=== PATIENT | male | born 1945 | race Two or more races ===

== ENCOUNTER → 2017-06-18 | Outpatient (REF) | payer MEDICARE, BC | LOC: M SMT 13:23 | PROVIDERS: ATTEND Nurse Practitioner Women's Health | DX: N40.0 Benign prostatic hyperplasia without lower urinary tract symptoms (principal); M17.11 Unilateral primary osteoarthritis, right knee; R35.0 Frequency of micturition | CPT/HCPCS: 36415; 51798; 81001; 85025; 85652; 86140; 86431; 87086; G0463 ==

== ENCOUNTER → 2017-06-18 | Outpatient (REF) | payer MEDICARE, BC ==
[2017-06-18 17:10] LABS: BASO % 0.7 % (0.0-1.0); EOS # 0.2 K/mm3 (0.0-0.50); EOS % 2.8 % (0.0-3.0); LARGE UNSTAINED CELL # 0.1 K/mm3 (0.0-0.4); LARGE UNSTAINED CELL % 2.1 % (0.0-4.0); LYMPH # 1.8 K/mm3 (1.5-4.5); LYMPH % 25.5 % (24.0-44.0); MEAN CORPUSCULAR HEMOGLOBIN 31.3 pg (27.0-33.0); MEAN CORPUSCULAR HGB CONC 34.6 g/dl (32.0-36.5); MEAN CORPUSCULAR VOLUME 90.3 fl (80.0-96.0); MONO # 0.4 K/mm3 (0.0-0.8); MONO % 5.4 % (0.0-5.0); NEUTROPHILS # 4.2 K/mm3 (1.8-7.7); NEUTROPHILS % 63.6 % (36.0-66.0); PLATELET COUNT, AUTOMATED 226 k/mm3 (150-450); WHITE BLOOD COUNT 6.6 K/mm3 (4.0-10.0)
[2017-06-18 20:59] LABS: ERYTHROCYTE SEDIMENTATION RATE 19 mm/hr (0-20)
== END ==
LOC: M LABDRAW1 15:32
PROVIDERS: ATTEND Physician Assistant
DX: M17.11 Unilateral primary osteoarthritis, right knee (principal); N40.0 Benign prostatic hyperplasia without lower urinary tract symptoms; R35.0 Frequency of micturition

== ENCOUNTER → 2021-06-03 | Outpatient (CLI) | payer MEDICARE, BC ==
--- NOTE | 2021-06-03 17:34 | REPVR ---
PROCEDURE INFORMATION: Exam: MR Head Without Contrast Exam date and time: 06/03/2021 3:34 PM Age: 75 years old Clinical indication: Pain; Headache not specified; Additional info: Intractable headache TECHNIQUE: Imaging protocol: MR of the head without contrast. COMPARISON: No relevant prior studies available. FINDINGS: Brain: Scattered T2/FLAIR hyperintensities in the white matter of bilateral hemispheres. No acute infarct. No hemorrhage. Cerebral ventricles: Normal. No ventriculomegaly. Bones/joints: Unremarkable. Paranasal sinuses: Normal as visualized. No acute sinusitis. Mastoid air cells: Normal as visualized. No mastoid effusion. Orbital cavity: Unremarkable. Soft tissues: Unremarkable. IMPRESSION: No acute intracranial abnormality. Nonspecific T2/FLAIR hyperintensities scattered in bilateral hemispheres. Electronically signed by: Jose Aguero On 06/03/2021 17:34:20 PM
== END ==
LOC: M RAD 14:42
PROVIDERS: ATTEND Nurse Practitioner Family
DX: G44.201 Tension-type headache, unspecified, intractable (principal)